=== PATIENT | female | born 1950 | race African-American/Black ===

== ENCOUNTER 2018-03-04 15:47 | Emergency (ER) | payer MEDICARE, MEDICAID ==
[~2018-03-04] VITALS: Ht 162.6 cm; Wt 68.0 kg
[~2018-03-04 15:47] MED LIST: HYDR-519; SOMA PO
[2018-03-04 16:05] VITALS: BP 123/84
[2018-03-07] MEDS ORDERED: LEVO500T2 MT (13:54)
[2018-03-07] MEDS ORDERED: METR250T MT (13:54)
== END 2018-03-04 20:00 | disposition left against medical advice (07) ==
LOC: ER 15:47
DX: R51 Headache (principal); G90.8 Other disorders of autonomic nervous system; I69.354 Hemiplegia and hemiparesis following cerebral infarction affecting left non-dominant side
CPT/HCPCS: 99281